=== PATIENT | female | born 1940 | race Caucasian/White ===

== ENCOUNTER 2018-03-14 15:42 | Emergency (ER) | payer MEDICARE, MEDICAID ==
[~2018-03-14] VITALS: Ht 157.5 cm; Wt 70.5 kg
[2018-03-14 15:55] VITALS: BP 122/68
--- NOTE | 2018-03-14 17:19 | NUR ---
Patient ambulated to er bed 1
--- NOTE | 2018-03-14 17:20 | NUR ---
77Y/F BIB FAMILY WITH C/O COUGH, DIZZY, WEAK X 4 DAYS. PT DENIES N/V/D; SKIN IS INTACT, PINK/WARM/DRY; AAOX4, PERRL, WITH EVEN AND STEADY GAIT; LUNGS CLEAR BL, BREATHING UNLABORED; HR EVEN AND REGULAR, BL PERIPHERAL PULSES PRESENT; BS ACTIVE X4, PT DENIES ANY FEVER, CP, OR SOB AT THIS TIME; PT STATES 0/10 PAIN AT THIS TIME; VSS; PATIENT POSITIONED FOR COMFORT; HOB ELEVATED; BEDRAILS UP X1; BED DOWN. HX; HTN RX; HYDROCLOROTHIAZIDE, METROPOLOL
--- NOTE | 2018-03-14 17:39 | NUR ---
Patient being evaluated by physician at bedside.
--- NOTE | 2018-03-14 17:55 | NUR ---
LAB AT BEDSIDE
[2018-03-14 18:11] LABS: BASOPHILS % (AUTO) 0.3 % (0.0-2.0); EOSINOPHILS % (AUTO) 0.1 % (0.0-4.0); HEMOGLOBIN 12.8 g/dL (12.0-16.0); LYMPHOCYTES # (AUTO) 0.5 K/uL (2.5-16.5); LYMPHOCYTES % (AUTO) 18.8 % (20.5-51.1); MEAN CORPUSCULAR HEMOGLOBIN 31 pg (27-31); MEAN CORPUSCULAR HGB CONC 34 g/dL (33-37); MEAN CORPUSCULAR VOLUME 91.9 fL (80-94); MONOCYTES # (AUTO) 0.6 K/uL (0.8-1.0); MONOCYTES % (AUTO) 21.4 % (1.7-9.3); NEUTROPHILS # (AUTO) 1.7 K/uL (1.8-7.7); NEUTROPHILS % (AUTO) 59.4 % (42.2-75.2); PLATELET COUNT (AUTO) 227 K/uL (140-450); RED BLOOD CELL COUNT(AUTO) 4.13 MIL/uL (4.20-5.40); RED CELL DISTRIBUTION WIDTH 14.1 % (11.6-13.7); WHITE BLOOD COUNT (AUTO) 2.8 K/uL (4.8-10.8)
[2018-03-14 18:29] LABS: PROTHROMBIN TIME 9.3 secs (10.8-13.4)
[2018-03-14 18:44] LABS: ALBUMIN 3.3 g/dL (3.4-5.0); ANION GAP 13.6 (8-16); ASPARTATE AMINOTRANSFERASE 30 U/L (15-37); CARBON DIOXIDE 25.3 mmol/L (21-32); CHLORIDE 95 mmol/L (98-107); CREATININE 0.8 mg/dL (0.6-1.3); GLUCOSE 134 mg/dL (74-106); POTASSIUM 3.9 mmol/L (3.5-5.1); SODIUM SERUM 130 mmol/L (136-145); TOTAL BILIRUBIN 0.4 mg/dL (0.0-1.0); UREA NITROGEN, BLOOD 10 mg/dL (7-18)
--- NOTE | 2018-03-14 18:44 | NUR ---
X-RAY AT BEDSIDE
[2018-03-14 18:45] LABS: MAGNESIUM 1.6 mg/dL (1.8-2.4); THYROID STIMULATING HORMONE 1.08 uIU/mL (0.34-3.74)
[2018-03-14] MEDS ORDERED: NACL 0.9% 2,100 ML IV ONE (19:41)
[2018-03-14] MEDS ORDERED: cefTRIAXone 2,000 MG in DEXTROSE 5% 100 ML IV ONE (19:45)
[2018-03-14] MEDS ORDERED: LEVOFLOXACIN 750 MG/D5W PREMIX 150 ML IV ONE ×2 (19:45→21:01)
[2018-03-14 20:02] LABS: BILIRUBIN,URINE NEGATIVE (NEGATIVE); BLOOD, URINE TRACE-I (NEGATIVE); COLOR,URINE YELLOW (YELLOW); LEUKOCYTE ESTERASE ,URINE NEGATIVE (NEGATIVE); NITRITE, URINE NEGATIVE (NEGATIVE); PH,URINE 6.5 (5.0-9.0); UGLUCOSE NEGATIVE (NEGATIVE)
[2018-03-14 20:05] LABS: APPEARANCE,URINE SLIGHTLY CLOUDY (CLEAR)
[2018-03-14 20:07] LABS: RBC,URINE 3-10 (FEW) /HPF (0-5)
[2018-03-14 20:08] LABS: WBC,URINE NONE SEEN /HPF (0-5)
--- NOTE | 2018-03-14 20:30 | NUR ---
HOUSE SUP CALLED FOR LEVAQUIN NOT AVAILABLE IN ER [facility].
[2018-03-14] MEDS ORDERED: cefTRIAXone 2,000 MG VIAL ONE (20:42)
[2018-03-14] MEDS ORDERED: LEVOFLOXACIN 500 MG/D5W PREMIX 100 ML IV ONE (21:00)
--- NOTE | 2018-03-14 22:18 | NUR ---
pt laying in bed awake, family at bedside, vss, will continue to monitor.
--- NOTE | 2018-03-14 23:25 | NUR ---
FLUIDS AND ABX WILL FINISH BEFORE PT IS D/C. PT LAYING IN BED, VSS.
[2018-03-15 00:11] VITALS: BP 128/66
--- NOTE | 2018-03-15 00:11 | NUR ---
Patient discharged with v/s stable. Written and verbal after care instructions given and explained. Patient alert, oriented and verbalized understanding of instructions. Ambulatory with steady gait. All questions addressed prior to discharge. ID band removed. Patient advised to follow up with PMD. Rx of AUGMENTIN, CODEINE given. Patient educated on indication of medication including possible reaction and side effects. Opportunity to ask questions provided and answered.
== END 2018-03-14 23:11 | disposition home or self-care (01) ==
LOC: MED 15:42
DX: J20.9 Acute bronchitis, unspecified (principal); I10 Essential (primary) hypertension
CPT/HCPCS: 36415; 71045; 80053; 81001; 83605; 83735; 83880; 84443; 84484; 85025; 85610; 85730; 87040; 87086; 93005; 96365; 96366; 96367; 99284; J0696; J1956; J7030

== ENCOUNTER 2018-07-07 11:42 | Emergency (ER) | payer MEDICARE, MEDICAID ==
[~2018-07-07] VITALS: Ht 160 cm; Wt 63.5 kg
[2018-07-07 12:50] VITALS: BP 150/84
--- NOTE | 2018-07-07 13:02 | NUR ---
Patient transferred to bed 6 via wheelchair by tech. RN evaluating patient at bedside.
--- NOTE | 2018-07-07 13:09 | NUR ---
PT STATES WINDOW FELL ON FOOT AT 11:00. STATES NO BROKEN GLASS. [id number] LACERATION ON TOP OF RT GREAT TOE. 3/10 PAIN WITH PRESSURE.
--- NOTE | 2018-07-07 13:31 | NUR ---
Dr. Potter evaluating patient at bedside.
[2018-07-07] MEDS ORDERED: LIDOCAINE/EPI 1% 1:100000 20 ML VIAL INJ ONE (14:06)
[2018-07-07 17:00] VITALS: BP 145/80
== END 2018-07-07 17:00 | disposition home or self-care (01) ==
LOC: MED 11:42
DX: S91.111A Laceration without foreign body of right great toe without damage to nail, initial encounter (principal); I10 Essential (primary) hypertension; W20.8XXA Other cause of strike by thrown, projected or falling object, initial encounter; Y93.89 Activity, other specified; Y92.89 Other specified places as the place of occurrence of the external cause; Y99.8 Other external cause status
CPT/HCPCS: 12002; 73660; 99283; J2001; Q0092

== ENCOUNTER 2018-07-16 08:29 | Emergency (ER) | payer MEDICARE, MEDICAID ==
[~2018-07-16] VITALS: Ht 154.9 cm; Wt 68.1 kg
[2018-07-16 08:34] VITALS: BP 136/65
--- NOTE | 2018-07-16 08:40 | NUR ---
BIB FRIEND. ANUMO X4. PT STATING SHE IS HERE FOR SUTURE REMOVAL. PT SEEN AT [facility] ON 07/09 FOR LACERATION ON RTN FOOT 1ST TOE. PT STATES 06/08 TO R FOOT 1ST TOE. AFEBRILE. NO DRAINAGE, REDNESS NOTED. SKIN IS INTACT. HOB UP. BED SIDE RAILS UP X1. ON LOW BED POSITION, LOCKED. ER MADE AWARE OF PT STATUS.
--- NOTE | 2018-07-16 08:55 | NUR ---
DR HEDRICK AT BEDSIDE FOR PT SUTURE REMOVAL. PT TOLERATED WELL.
[2018-07-16 09:14] VITALS: BP 136/65
--- NOTE | 2018-07-16 09:14 | NUR ---
Patient discharged with v/s stable. Written and verbal after care instructions given and explained. Patient verbalized understanding. Ambulatory with steady gait. All questions addressed prior to discharge. Advised to follow up with PMD.
== END 2018-07-16 09:14 | disposition home or self-care (01) ==
LOC: MED 08:29
DX: S91.111D Laceration without foreign body of right great toe without damage to nail, subsequent encounter (principal); I10 Essential (primary) hypertension; X58.XXXD Exposure to other specified factors, subsequent encounter
CPT/HCPCS: 99283

== ENCOUNTER 2021-02-04 19:00 | Emergency (ER) | payer MEDICAID, MEDICARE, OTHER ==
[~2021-02-04] VITALS: Ht 157.5 cm; Wt 68.0 kg
[2021-02-04 19:04] VITALS: BP 123/65
--- NOTE | 2021-02-04 19:40 | NUR ---
NOVEL SAMPLE COLLECTED FROM PT NARES AND HANDED TO ABIODUN FROM LAB.
[2021-02-04 20:03] LABS: APPEARANCE,URINE CLEAR (CLEAR); BILIRUBIN,URINE NEGATIVE (NEGATIVE); BLOOD, URINE 2+ (NEGATIVE); COLOR,URINE YELLOW (YELLOW); LEUKOCYTE ESTERASE ,URINE 2+ (NEGATIVE); NITRITE, URINE NEGATIVE (NEGATIVE); UGLUCOSE NEGATIVE (NEGATIVE)
[2021-02-04 20:35] LABS: RBC,URINE 11-20 (MOD) /HPF (0-5); WBC,URINE 20-60 /HPF (0-5)
[2021-02-04] MEDS ORDERED: CEPH-588 PO (20:45)
[2021-02-04] MEDS ORDERED: PHEN-1877 PO (20:45)
[2021-02-04 20:50] VITALS: BP 123/65
[2021-02-04] MEDS ORDERED: cephALEXin 500 MG CAP PO ONE ×2 (20:50)
== END 2021-02-04 20:58 | disposition home or self-care (01) ==
LOC: MED 19:00
DX: N39.0 Urinary tract infection, site not specified (principal); Z20.822 Contact with and (suspected) exposure to COVID-19; R30.0 Dysuria; I10 Essential (primary) hypertension
CPT/HCPCS: 81001; 87086; 99283; U0003

== ENCOUNTER 2023-02-03 21:01 | Emergency (ER) | payer OTHER ==
[~2023-02-03] VITALS: Ht 144.8 cm; Wt 68.9 kg
[~2023-02-03 21:01] MED LIST: CEPH-588 PO; PHEN-1877 PO
[2023-02-03 21:14] VITALS: BP 142/75; PULSE 70; RESP 20; TEMP 98.2; O2SAT 99
[2023-02-03] MEDS ORDERED: NEOMYCIN/POLYMYXIN/BACITRACIN 0.9 GM/1 PKT TP ONE (22:00)
[2023-02-03] MEDS ORDERED: LIDOCAINE 1% 500 MG/ 50 ML VIAL INJ ONE (22:10)
[2023-02-03] MEDS ORDERED: LIDOCAINE MPF 1% 5 ML ONE (22:11)
[2023-02-03 23:00] VITALS: BP 142/75; PULSE 70; RESP 20; TEMP 98.2; O2SAT 99
== END 2023-02-03 23:00 | disposition home or self-care (01) ==
LOC: MED 21:01
DX: S61.217A Laceration without foreign body of left little finger without damage to nail, initial encounter (principal); W23.0XXA Caught, crushed, jammed, or pinched between moving objects, initial encounter; Y93.89 Activity, other specified; Y92.89 Other specified places as the place of occurrence of the external cause; Y99.8 Other external cause status
CPT/HCPCS: 12002; 73140; 90471; 90715; 99283; J2001

== ENCOUNTER 2023-02-14 14:39 | Emergency (ER) | payer OTHER ==
[~2023-02-14] VITALS: Ht 154.9 cm; Wt 68.5 kg
[2023-02-14 15:12] VITALS: BP 142/72; PULSE 63; RESP 16; TEMP 97.6; O2SAT 99
[2023-02-14 16:35] VITALS: BP 135/76; PULSE 63; RESP 16; TEMP 97.6; O2SAT 99
== END 2023-02-14 16:35 | disposition home or self-care (01) ==
LOC: MED 14:39
DX: S61.217D Laceration without foreign body of left little finger without damage to nail, subsequent encounter (principal); Z48.00 Encounter for change or removal of nonsurgical wound dressing; I10 Essential (primary) hypertension; Z79.899 Other long term (current) drug therapy; Z79.2 Long term (current) use of antibiotics; X58.XXXD Exposure to other specified factors, subsequent encounter
CPT/HCPCS: 99281

== ENCOUNTER 2023-02-19 15:50 | Emergency (ER) | payer OTHER ==
[~2023-02-19] VITALS: Ht 153.7 cm; Wt 68.9 kg
[2023-02-19 16:10] VITALS: BP 132/70; PULSE 87; RESP 20; TEMP 97.7; O2SAT 98
[2023-02-19] MEDS ORDERED: BACITRACIN OINT 500 UNITS/GM PKT TP ONE ×2 (16:50)
[2023-02-19 16:58] VITALS: BP 132/70; PULSE 87; RESP 20; TEMP 97.7; O2SAT 98
== END 2023-02-19 16:58 | disposition home or self-care (01) ==
LOC: MED 15:50
DX: S61.217D Laceration without foreign body of left little finger without damage to nail, subsequent encounter (principal); Z48.02 Encounter for removal of sutures; I10 Essential (primary) hypertension; Z79.899 Other long term (current) drug therapy; Z79.2 Long term (current) use of antibiotics; X58.XXXD Exposure to other specified factors, subsequent encounter
CPT/HCPCS: 99282